=== PATIENT | male | born 1965 | race Caucasian/White ===

== ENCOUNTER 2017-05-17 19:58 | Emergency (ER) | payer OTHER ==
[~2017-05-17] VITALS: Ht 177.8 cm; Wt 68.0 kg
--- NOTE | 2017-05-17 20:12 | NUR ---
HOME MEDS PT STATES HE JUST TAKES IBUPROFEN NEEDED FOR PAIN BECAUSE HE HASN'T BEEN BACK HOME TO GET MORE PAIN MEDS
[2017-05-17] MEDS ORDERED: TORADOL IM STA (20:21)
--- NOTE | 2017-05-17 20:24 | ER.PDOC ---
General Chief Complaint: Trunk Pain/Injury Stated Complaint: SIDE/.RIB PAIN Time seen by MD: 20:23 Source: patient Exam Limitations: no limitations History of Present Illness Initial Comments Right rib pain from laughing Quality/Severity: moderate Allergies: Uncoded Allergies: CODEINE (Allergy, Intermediate, ITCHING, 04/26/13) Past Medical History Medical History: no pertinent history Social History Smoking: cigarettes, less than 1 pack/day Alcohol Use: occassionally Drug Use: none Review of Systems Constitutional: no symptoms reported Throat: no symptoms reported Respiratory: no symptoms reported Cardiovascular: no symptoms reported Gastrointestinal: no symptoms reported Musculoskeletal: see HPI All Other Systems: Reviewed and Negative Physical Exam General Appearance: No Apparent Distress, WD/WN Head: No Evidence of Injury Neck: Non-Tender, Normal Alignment Respiratory: normal breath sounds, no respiratory distress, tenderness (right lateral chestwall) Cardiovascular/Chest: Normal Peripheral Pulses, Regular Rate, Rhythm, No Edema , No Gallop, No JVD, No Murmur Gastrointestinal: Normal Bowel Sounds, No Organomegaly, No Pulsatile Mass, Non Tender, Soft Back: Normal Inspection, No CVA Tenderness, No Vertebral Tenderness Extremities: No Evidence of Injury, Normal Range of Motion, Non-Tender, No Pedal Edema Results/Orders Results/Orders Administered Medications Medications (Trade) Dose Ordered Sig/Mike Route PRN Reason Start Time Stop Time Status Last Admin Dose Admin Ketorolac Tromethamine (Toradol) 60 mg STAT STAT IM 05/17/17 20:21 05/17/17 20:23 DC 05/17/17 20:39 EKG/XRAY/CT/US XRAY Comments: No evidence of fracture on right rib series Departure Time of Disposition: 21:05 Disposition: 01 HOME, SELF-CARE Impression: Primary Impression: Chest wall tenderness Condition: Stable Referrals: GEMINI BASHIR MD (PCP) PRIMARY CARE PROVIDER Additional Instructions: Diclofenac F/U with your PCP in 2-3 days RHEA MARTIN MD May 17, 2017 20:24
[2017-05-17] MEDS ORDERED: TORADOL ONE (20:28)
--- NOTE | 2017-05-17 20:29 | NUR ---
PT OUT OF RM FOR XRAY
--- NOTE | 2017-05-17 20:38 | NUR ---
returned to from xray
--- NOTE | 2017-05-17 20:54 | DIREP ---
PROCEDURE:XRAY RIBS W/PA CHEST 3VWS-RT COMPARISON:None. INDICATIONS:LOWER RT RIB PAIN, HX OF 2 RIB FRACTURES AND A PUNCTURED RIGHT LUNG X 10 MONTHS FINDINGS: CHEST:Heart and mediastinum within normal limits. Lungs are well aerated. RIBS:Old healed fracture of the posterior lateral 8th rib. 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 OTHER:There is marked dextroscoliosis of the upper thoracic spine with associated degenerative disc and facet changes. Anterior cervical spine fusion plate noted. CONCLUSION:No evidence of acute fracture. Old the fractures described above. Dictated by: Theron Kumar MD on 05/17/2017 at 08:51 PM
[2017-05-17 21:14] VITALS: BP 132/74
--- NOTE | 2017-05-17 21:14 | NUR ---
DISCHARGE PT STATES HE IS FEELING BETTER AND IS READY TO GO HOME. DISCHARGE INSTRUCTIONS DISCUSSED. PT VERBALIZED UNDERSTANDING. ENCOURAGED TO RETURN FOR ANY CONCERNS.
== END 2017-05-17 21:14 | disposition home or self-care (01) ==
LOC: ER 19:58
DX: R07.89 Other chest pain (principal); F17.210 Nicotine dependence, cigarettes, uncomplicated; Z88.5 Allergy status to narcotic agent
CPT/HCPCS: 71101; 96372; 99284; J1885